=== PATIENT | male | born 1960 | race Caucasian/White ===

== ENCOUNTER → 2018-01-07 | Outpatient (CLI) | payer OTHER ==
[~2018-01-07] MED LIST: AMOX875T PO; ASPI81TA28 PO; EPP3/2 IM; LEVO50TA6 PO; LOSA1TAB38 PO; OMEP40CA41 PO
--- NOTE | 2018-01-07 19:01 | DIAGNOSTIC IMAGING REPORT ---
BRAIN WITHOUT CONTRAST HISTORY: 57 years-old Male ERVIN,LIGHTHEADED,MEMORY LOSS acute memory loss with lightheadedness COMPARISON: MRI brain 10/10/2013, CT head 08/19/2014 TECHNIQUE: Multiplanar multisequence MRI of the brain was obtained without contrast FINDINGS: Large [id number] seismograph observer localizer images demonstrate no gross abnormality. Midline structures including the corpus callosum, brainstem, optic chiasm, pituitary and pineal gland appear unremarkable on the sagittal T1 series. No cerebellar tonsillar herniation. Degenerative changes of the imaged cervical spine are noted. No acute intracranial hemorrhage, midline shift, abnormal extra-axial collections or hydrocephalus. Mild parenchymal atrophy. There are a few scattered punctate foci of T2/FLAIR prolongation within the subcortical white matter suggesting mild chronic microvascular ischemic changes. Major flow voids at the level of the skull base appear patent. Moderate left and trace right mastoid effusions. Minimal maxillary sinus disease. Orbits are symmetric and unremarkable. Scalp, skull and soft tissues are within normal limits. IMPRESSION: No acute intracranial abnormality. The above report was generated using voice recognition software. It may contain grammatical, syntax or spelling errors. Electronically signed by: Armond Rodrigez M.D. 01/07/2018 6:59 PM Dictated Date/Time: 01/07/2018 4:59 PM
== END | disposition home or self-care (01) ==
LOC: C.MRI 16:00
PROVIDERS: ATTEND Family Medicine
DX: R51 Headache (principal); R42 Dizziness and giddiness; R41.3 Other amnesia

== ENCOUNTER → 2018-01-22 | Outpatient (CLI) | payer OTHER ==
--- NOTE | 2018-01-22 07:51 | DIAGNOSTIC IMAGING REPORT ---
CAROTID ARTERY ULTRASOUND CLINICAL HISTORY: Benign paroxysmal vertigo. COMPARISON STUDY: None. TECHNIQUE: Real-time, grayscale, and color Doppler sonography of the carotid and vertebral arteries was performed. Images were viewed in the transverse and longitudinal planes. FINDINGS: There is minimal atherosclerotic plaque. Velocity measurements are listed below. COMMON CAROTID PEAK SYSTOLIC VELOCITY (CM/S): RIGHT 99 LEFT 95 ICA PEAK SYSTOLIC VELOCITY (CM/S): RIGHT 78 LEFT 78 Systolic ratios between the internal to common carotid arteries are normal. Antegrade flow is seen in the vertebral arteries. The external carotid arteries are patent. Blood pressure in the right arm measured 152/93. Blood pressure in the left arm measured 168/100. IMPRESSION: No evidence of a hemodynamically significant stenosis. Electronically signed by: Yosvany Barber M.D. 01/22/2018 7:50 AM Dictated Date/Time: 01/22/2018 7:49 AM
== END | disposition home or self-care (01) ==
LOC: C.ULTR 06:35
PROVIDERS: ATTEND Otolaryngology
DX: H81.10 Benign paroxysmal vertigo, unspecified ear (principal)